=== PATIENT | female | born 1950 | race Caucasian/White ===

== ENCOUNTER → 2018-07-17 | Day surgery (SDC) | payer MEDICARE, BC ==
[~2018-07-17] MED LIST: IV RINGERS,LACTATED 1000ML 1,000 ML IV SCH; LABE200T4 PO; PANT20TA2 PO; PROPOFOL 20 ML IV ONE; SUCR1TAB PO; ZOLP10TA4 PO
[2018-07-17 16:30] VITALS: BP 226/106
--- NOTE | 2018-07-19 17:08 | PATHOLOGY ---
[facility] Accession Number: [id number] . 01 Material submitted: . PART A: DISTAL ESOPHAGUS BIOPSY PART B: GASTRIC BIOPSY . 01 Clinical history: . Weight loss, dysphagia . 02 Diagnosis: A. Esophageal biopsies, distal esophagus: - Poorly differentiated adenocarcinoma. See comment. . B. Gastric biopsies: - Segments of gastric showing focal reactive foveolar hyperplasia, congestion, edema, and mild chronic inflammation. . 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 02 Comment: Sections of the distal esophageal biopsy reveal a malignant epithelial neoplasm. The malignant cells are present in crowded small nests and focally form acinar structures, which in several of the biopsy segments undermine the overlying squamous esophageal mucosa. The malignant cells possess enlarged, rounded to ovoid nuclei containing prominent nucleoli. Mitotic figures are present. The findings are supportive of the diagnosis of a poorly differentiated adenocarcinoma. . Sections of the gastric biopsy reveal segments of gastric mucosa showing focal foveolar hyperplasia, congestion, edema, and mild chronic inflammation. There is a minute segment of necroinflammatory tissue. No viable neoplasm is identified. A properly controlled immunoperoxidase stain for Helicobacter is negative for Helicobacter organisms. . The results are reported to Dr. Leal on 07/19/18 at 1:00 PM. The case is also examined by Dr. Nicole Dumont, who concurs with the diagnosis. . Special stain performed: Immunoperoxidase stain for Helicobacter. . (JPM:darling; 07/19/2018) . 02 Electronically signed: . Devon Yancey MD, Pathologist NPI- [id number] . 01 Gross description: . A. Received in formalin labeled "Mariela Dawkins, distal esophagus," are multiple segments of duong soft tissue measuring 1.1 x 0.4 x 0.1 cm in aggregate dimensions. The specimen is filtered and entirely submitted in cassette A1. . B. Received in formalin labeled "Mariza, Mariela, gastric biopsy," are multiple segments of duong soft tissue measuring 1.7 x 0.3 x 0.1 cm in aggregate dimensions. The specimen is filtered and entirely submitted in cassette B1. (TSD; 07/18/2018) TOB/TOB . 02 Pathologist provided ICD-10: C15.9, K29.50 . 02 CPT . 860441, 472337, Y20503 Specimen Comment: A courtesy copy of this report has been sent to Specimen Comment: [phone], . Specimen Comment: Report sent to / DR RAJPUT Specimen Comment: A duplicate report has been generated due to demographic updates. Performed at: 01 [facility] [address] [facility] [address], [place] [id number] MD Ac Bhardwaj MD Phone: [phone] Performed at: 02 [facility] [address] [place], [place] [id number] MD Devon Yancey MD Phone: [phone]
== END | disposition home or self-care (01) ==
LOC: SURG 14:34
PROVIDERS: ATTEND Internal Medicine Gastroenterology
DX: C15.5 Malignant neoplasm of lower third of esophagus (principal); K29.50 Unspecified chronic gastritis without bleeding; F41.9 Anxiety disorder, unspecified; J43.9 Emphysema, unspecified; M19.90 Unspecified osteoarthritis, unspecified site; K21.9 Gastro-esophageal reflux disease without esophagitis; I10 Essential (primary) hypertension; F17.200 Nicotine dependence, unspecified, uncomplicated; Z79.899 Other long term (current) drug therapy; Z90.49 Acquired absence of other specified parts of digestive tract; Z80.0 Family history of malignant neoplasm of digestive organs; Z88.5 Allergy status to narcotic agent
CPT/HCPCS: 43239; J2704; 88305; 88342

== ENCOUNTER → 2018-08-16 | Outpatient (CLI) | payer MEDICARE, BC ==
[2018-07-17 16:30] VITALS: BP 226/106
[~2018-08-16] MED LIST changes: -IV RINGERS,LACTATED 1000ML 1,000 ML IV SCH; -PROPOFOL 20 ML IV ONE
--- NOTE | 2018-08-16 12:36 | RAD ---
CLINICAL HISTORY: History of esophageal cancer. INDICATION: Initial evaluation. COMPARISON: [facility] TECHNIQUE: Location of scan: [facility] Radiopharmaceutical Dose: 13.96 mCi F-18 FDG intravenous Blood glucose at time of study: 108 FDG uptake time = 60 minutes. Images were obtained from the mid head to the mid thighs A low dose, noncontrast CT study was performed for the purpose of attenuation correction and anatomic localization. FINDINGS: Head and Neck: Physiologic activity is seen within the head and neck Chest: An 8 mm x 5 mm right paraesophageal lymph node (image 327) has an SUV max of 9.3. Prominent right axillary lymph nodes, which measure up to 7 mm in short axis are seen within SUV max of 2.4. Emphysematous changes are seen. Bilateral 3-4 mm lung nodules are seen, too small to characterize by PET/CT. Heart is enlarged. No pericardial effusion. Coronary artery calcifications are seen. Abdomen and Pelvis: An inferior right hepatic lobe hypodense lesion measures 3.5 x 2.1 cm with an SUV max of 36.8. A 1 cm left hepatic lobe hypodense lesion (image 203) has an SUV max of 11. A gastrohepatic ligament lymph node mass measures approximately 6.4 x 4.3 cm with an SUV max of 40.7. Although there is mild increased activity within the small and large bowel which is likely physiologic, there is a region of colon with an SUV max of 10.4 in the ascending colon and the cecum to the hepatic flexure. No definite associated inflammatory changes/fat infiltration on the CT portion to suggest colitis. Moderate right hydronephrosis to the level of the ureteropelvic junction with distal decompressed appearance of the ureter. This is suspicious for obstruction at the right ureteropelvic junction, age indeterminate. Otherwise physiologic renal collecting system activity. Skeletal: Physiologic activity is seen within the skeletal structures. No definite suspicious focus of increased metabolic activity. Reference SUV Values: Mediastinal SUV Max: 2.1 Liver SUV Max: 3.8 IMPRESSION: 1. Gastrohepatic ligament lymph node mass is seen with increased metabolic activity suspicious for metastatic disease/primary malignant involvement/extension. 2. Small paraesophageal lymph node in the superior mediastinum, measuring approximately 5 mm short axis, also with increased metabolic activity. This is suspicious for metastatic involvement. 3. 2 hypodense lesions within the liver with increased metabolic activity suspicious for metastatic disease. 4. Increased metabolic activity within the ascending colon to the hepatic flexure greater than background activity within the small and large bowel. Malignancy is not excluded and can be further assessed by colonoscopy if not already performed. Although this may also represent infectious/inflammatory process, given the lack of associated inflammatory change/wall thickening, is felt to be less likely. 5. Moderate right hydronephrosis to the level of the ureteropelvic junction with distal decompressed appearance of the ureter. This is suspicious for obstruction at the right ureteropelvic junction, age indeterminate. Radiation Dosimetry: The radiopharmaceutical used for this exam delivers approximately 0.7 mSv/mCi (70 mRem/mCi) Source: ICRP Publication 106
== END | disposition home or self-care (01) ==
LOC: PETSC 08:12
PROVIDERS: ATTEND Internal Medicine Hematology & Oncology
DX: C15.9 Malignant neoplasm of esophagus, unspecified (principal); R59.9 Enlarged lymph nodes, unspecified; N13.30 Unspecified hydronephrosis; J43.9 Emphysema, unspecified; I25.10 Atherosclerotic heart disease of native coronary artery without angina pectoris
CPT/HCPCS: 78815; A9552

== ENCOUNTER 2018-08-31 07:04 | Outpatient (CLI) | payer MEDICARE, BC ==
[~2018-08-31] VITALS: Ht 165.1 cm; Wt 83.9 kg
[2018-08-31] MEDS ORDERED: fentaNYL PF VIAL 100 MCG/2 ML VIAL ONE (07:40)
[2018-08-31] MEDS ORDERED: MIDAZOLAM HCL/PF 2 MG/2 ML VIAL. ONE ×2 (07:40→08:23)
[2018-08-31] MEDS ORDERED: FLUMAZENIL 0.5 MG/5 ML VIAL. IV ONE (07:40)
[2018-08-31] MEDS ORDERED: NALOXONE 0.4 MG/ML VIAL. ONE (07:40)
[2018-08-31] MEDS ORDERED: LIDOCAINE WITH 8.4% SOD BICARB 3 ML DISP.SYRIN. ONE (07:41)
[2018-08-31 07:42] LABS: BASO # 0.1 x10^3/uL (0.0-0.2); BASO % 1 % (0-3); EOS # 0.2 x10^3/uL (0.0-0.7); EOS % 2 % (0-3); HEMATOCRIT 40.5 % (36.0-47.0); HEMOGLOBIN 13.6 g/dL (12.0-15.5); LYMPH # 2.8 x10^3/uL (1.0-4.8); LYMPH % 23 % (24-48); MEAN CORPUSCULAR HEMOGLOBIN 30 pg (25-35); MEAN CORPUSCULAR HGB CONC 34 g/dL (31-37); MEAN CORPUSCULAR VOLUME 89 fL (79-100); MONO # 0.5 x10^3/uL (0.0-1.1); MONO % 4 % (0-9); NEUT # 8.4 x10^3uL (1.8-7.7); NEUT % 70 % (31-73); PLATELET COUNT 405 x10^3/uL (140-400); RED BLOOD COUNT 4.54 x10^6/uL (3.50-5.40); RED CELL DISTRIBUTION WIDTH 14.7 % (11.5-14.5); WHITE BLOOD COUNT 12.1 x10^3/uL (4.0-11.0)
[2018-08-31 07:53] LABS: PROTHROMBIN TIME PATIENT 13.2 SEC (11.7-14.0)
[2018-08-31] MEDS ORDERED: LIDOCAINE 1%/EPI 1:100,000 20 ML VIAL. ONE (07:55)
[2018-08-31] MEDS ORDERED: TRAZ150T49 PO (07:56)
[2018-08-31] MEDS ORDERED: HYDR-2761 PO (07:56)
[2018-08-31] MEDS ORDERED: BUSP10TA PO (07:56)
[2018-08-31] MEDS ORDERED: PANT20TA2 PO (07:56)
[2018-08-31 08:11] VITALS: BP 189/109
[2018-08-31] MEDS ORDERED: MIDAZOLAM HCL/PF 2 MG/2 ML VIAL. IV ONE (08:45)
[2018-08-31] MEDS ORDERED: fentaNYL PF VIAL 100 MCG/2 ML VIAL IV ONE (08:45)
[2018-08-31] MEDS ORDERED: LIDOCAINE 1%/EPI 1:100,000 20 ML VIAL. IJ ONE (08:45)
[2018-08-31 08:49] VITALS: BP 151/81
[2018-08-31 09:00] VITALS: BP 154/92
[2018-08-31 09:16] VITALS: BP 158/94
[2018-08-31 09:30] VITALS: BP 183/94
--- NOTE | 2018-08-31 14:34 | RAD ---
Procedure: Ultrasound and fluoroscopically guided placement of right internal jugular power port.. 08/31/2018 2:30 PM Clinical Indication: ESOPHAGEAL CANCER Sedation: Conscious sedation was administered for 30 minutes. The patient was monitored by a qualified independent observer throughout the time of sedation. Please refer to the medical record for exact doses of medications utilized to achieve moderate sedation. Fluoroscopy time: 0.4 minutes Dose area product:1 Gycm2 Consent: The procedure was explained in its entirety to the patient or the patients designated automobile rental representative by a member of the treatment team, including a discussion of the risks, benefits and commonly accepted alternatives to the procedure, as well as the expected consequences of no therapy whatsoever. Discussion of the risks included, but was not limited to, those that are most frequent and those that are rare but possibly severe or life-threatening, as well as the possibility of unforeseen complications. Technique and Findings: All elements of maximal sterile barrier technique including the use of a cap, mask, sterile gown, sterile gloves, large sterile sheet, appropriate hand hygiene, and 2% chlorhexidine for cutaneous antisepsis (or acceptable alternative antiseptic per current guidelines) were followed for this procedure. Following informed consent, and a timeout procedure, the patient was prepped and draped in the usual sterile fashion. Ultrasound interrogation of the right neck revealed patency and compressibility of the right internal jugular vein. A 21-gauge micropuncture was then used to gain access to this vein under ultrasound guidance. A hard copy ultrasound image was recorded. The needle was exchanged over a wire for a sheath. A 1 inch incision was made several centimeters inferior to the venotomy site. A catheter was tunneled from this site dermatotomy site in the neck. Catheter was advanced through peel-away sheath such that its tip was in the proximal right atrium with the patient supine. The catheter was trimmed to length and connected to the port reservoir. The port was found to flush and aspirate normally. The wound was closed in layers using 4-0 Vicryl suture. Sterile dressings were applied. Impression: Successful ultrasound and fluoroscopically guided placement of a right internal jugular PowerPort
== END 2018-08-31 10:00 | disposition home or self-care (01) ==
LOC: INTRAD 07:04
PROVIDERS: ATTEND Internal Medicine Hematology & Oncology
DX: C15.5 Malignant neoplasm of lower third of esophagus (principal); Z79.01 Long term (current) use of anticoagulants; Z88.5 Allergy status to narcotic agent
CPT/HCPCS: 36415; 36561; 76937; 77001; 85025; 85610; 99152; 99153; C1788; C1892; J0690; J2250; J3010; J3490; C1751

== ENCOUNTER → 2018-09-11 | Outpatient (CLI) | payer MEDICARE, BC ==
[2018-08-31 09:30] VITALS: BP 183/94
[~2018-09-11] MED LIST changes: +BUSP10TA PO; +HYDR-2761 PO; +TRAZ150T49 PO
--- NOTE | 2018-09-11 16:52 | CARD ---
MR#: [id number] Date of Study: 09/11/2018 Ordering Physician: ERICA RAVI, Referring Physician: ERICA RAVI, Tech: Susanne Bee APPROVED REPORT EXAM: Two-dimensional and M-mode echocardiogram with Doppler and color Doppler. Other Information Quality : Average INDICATION LV Function: RISK FACTORS Hypertension Smoking 2D DIMENSIONS RVDd3.0 (2.9-3.5cm)Left Atrium(2D)3.7 (1.6-4.0cm) IVSd1.5 (0.7-1.1cm)Aortic Root(2D)2.9 (2.0-3.7cm) LVDd4.9 (3.9-5.9cm)PWd1.6 (0.7-1.1cm) LVDs3.1 (2.5-4.0cm)FS (%) 37.3 % SV76.5 ml Aortic Valve AoV Peak Abdi.157.3cm/sAoV VTI32.3cm AO Peak GR.9.9mmHgLVOT Peak Abdi.90.8cm/s LVOT VTI 22.98cmAO Mean GR.5mmHg Mitral Valve MV E Nqgffcyn33.4cm/sMV DECEL [id number] MV A Ejthxtwr61.0cm/sMV FWP78xc E/A Ratio0.9MVA (PHT)3.05cm2 TDI E/Lateral E'12.1E/Medial E'17.4 Pulmonary Valve PV Peak Unnnafyv88.6cm/sPV Peak Grad.3mmHg Tricuspid Valve TR P. Pyvdhiku723dq/sRAP VPBZTXWW0mkPf TR Peak Gr.51oyFdEIJY05saFe Pulmonary Vein S1 Knrlvovq15.9cm/sD2 Lddvgihs65.2cm/s PVa hqhyupia385ynsx LEFT VENTRICLE The left ventricle is normal size. There is mild concentric left ventricular hypertrophy. The left ve ntricular systolic function is normal and the ejection fraction is within normal range. LV ejection f raction is estimated at 60%. There is normal LV segmental wall motion. Transmitral Doppler flow patte rn is Grade I-abnormal relaxation pattern. RIGHT VENTRICLE The right ventricle is normal size. There is normal right ventricular wall thickness. The right ventr icular systolic function is normal. ATRIA The left atrium size is normal. The right atrium size is normal. The interatrial septum is intact wit h no evidence for an atrial septal defect or patent foramen ovale as noted on 2-D or Doppler imaging. AORTIC VALVE The aortic valve is normal in structure and function. Doppler and Color Flow revealed no significant aortic regurgitation. There is no significant aortic valvular stenosis. MITRAL VALVE The mitral valve is normal in structure and function. Doppler and Color-flow revealed trace mitral re gurgitation. TRICUSPID VALVE The tricuspid valve is not well visualized. Doppler and Color Flow revealed trace tricuspid regurgita tion. PULMONIC VALVE The pulmonic valve is not well visualized. Doppler and Color Flow revealed trace pulmonic valvular re gurgitation. GREAT VESSELS The aortic root is normal in size. Normal pulmonary venous flow (Doppler). The IVC is normal in size and collapses >50% with inspiration. PERICARDIAL EFFUSION There is no evidence of significant pericardial effusion. Critical Notification Critical Value: No <Conclusion> The left ventricle is normal size. The left ventricular systolic function is normal and the ejection fraction is within normal range. LV ejection fraction is estimated at 60%. There is mild concentric left ventricular hypertrophy. There is no significant aortic valvular stenosis. Doppler and Color Flow revealed no significant aortic regurgitation. Doppler and Color-flow revealed trace mitral regurgitation. Doppler and Color Flow revealed trace tricuspid regurgitation. Signed by : Adam Rock MD Electronically Approved : 09/11/2018 16:50:36
== END | disposition home or self-care (01) ==
LOC: ECHO 11:57
PROVIDERS: ATTEND Internal Medicine Hematology & Oncology
DX: C15.5 Malignant neoplasm of lower third of esophagus (principal); I11.9 Hypertensive heart disease without heart failure; F17.210 Nicotine dependence, cigarettes, uncomplicated
CPT/HCPCS: 93306

== ENCOUNTER → 2018-12-06 | Outpatient (CLI) | payer MEDICARE, BC ==
[~2018-12-06] MED LIST changes: +CARV25TA PO; +LOSA1TAB22 PO; +ONDA8TAB9 PO
--- NOTE | 2018-12-06 10:02 | RAD ---
FDG tumor localization scan, PET/CT, 12/06/2018: History: Restaging esophageal cancer Following IV injection of 10.8 mCi of 18 F-FDG, imaging was performed from the skull base to the proximal thighs. The noncontrast CT component was performed for attenuation correction and anatomic localization purposes rather than for primary diagnosis. The patient's blood glucose level at the time of injection was 93 MG/DL. Comparison is made to a study from 08/16/2018. Physiologic FDG uptake is seen in the neck. No hypermetabolic neck lesion is identified. No hypermetabolic mediastinal or hilar adenopathy is seen. The small right paraesophageal hypermetabolic lymph node seen in the upper chest on the previous study has regressed and is no longer enlarged or hypermetabolic. No abnormal pulmonary FDG uptake is seen. The CT component demonstrates old calcified granulomatous disease in the right chest and mediastinum. In the upper abdomen there is confluent hypermetabolic soft tissue densities involving the stomach at the level of the GE junction and extending into the gastrohepatic ligament and celiac axis regions. The overall process is difficult to measure due to its irregular shape. The 3-D images suggests that this mass has decreased slightly in size. Its maximum SUV is currently 33 compared to evaluate a 40 on the previous study. The hypermetabolic nodule seen superiorly in the left lobe of the liver on the previous study has decreased in size and the degree of FDG uptake. Its maximum SUV is currently 5.5 compared to a value of 11.0 on the previous study. The previously seen hypermetabolic mass in the inferior aspect of the right lobe of the liver is no longer clearly visible on either the FDG/PET or CT component. No new hepatic lesion is identified. Normal GI tract and urinary tract activity is present in the remainder of the abdomen and pelvis. No new hypermetabolic lesion is seen. Moderate chronic appearing hydronephrosis seen on the right on the previous study has improved with partial decompression of the right renal pelvis. There appears be a small amount of free fluid in the deep pelvis. A right Port-A-Cath has been inserted extending into the inferior aspect of the superior vena cava. IMPRESSION: 1. The hypermetabolic mass at the GE junction level with adjacent confluent adenopathy has regressed since 08/16/2018 as described above. 2. The hypermetabolic right paraesophageal adenopathy in the upper chest has resolved. 3. The two hepatic metastases have also regressed. 4. No new metastatic foci are identified.
== END | disposition home or self-care (01) ==
LOC: PETSC 07:17
PROVIDERS: ATTEND Internal Medicine Hematology & Oncology
DX: C15.5 Malignant neoplasm of lower third of esophagus (principal); C78.7 Secondary malignant neoplasm of liver and intrahepatic bile duct
CPT/HCPCS: 78815; A9552

== ENCOUNTER 2019-01-04 09:56 | Emergency (ER) | payer MEDICARE, BC ==
[~2019-01-04] VITALS: Ht 165.1 cm; Wt 70.3 kg
[~2019-01-04 09:56] MED LIST changes: -CARV25TA PO; -LOSA1TAB22 PO; -ONDA8TAB9 PO
[2019-01-04 10:38] VITALS: BP 168/101
[2019-01-04] MEDS ORDERED: ONDANSETRON ODT 4 MG TAB.RAPDIS. PO ONE (11:00)
--- NOTE | 2019-01-04 11:22 | PHYS DOC ---
Past Medical History Past Medical History: Cancer, Other Additional Past Medical Histor: esophageal CA stage IV with metastisis to liver ; R-foot drop Past Surgical History: Cholecystectomy, Other Additional Past Surgical Histo: right upper chest port Alcohol Use: None Drug Use: None Adult General Chief Complaint Chief Complaint: MECHANICAL FALL HPI HPI Patient is a 68 year old female who presents following a mechanical fall in her physician's office. She is currently being treated for stage 4 metastatic esophageal cancer. 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 She states that she was going to have her port removed and tripped over her R-foot while crossing the room. She fell forward, landing on both knees and catching her R-elbow on a chair to break her fall. She denies hitting her head and denies LOC. She reports feeling some lightheadedness this AM which is normal for her due to her sleeping medications. She denies any pain but does feel nauseous which she attributes to her chemo regimen. She denies CP, SOB, f/c/v, hematuria, hematochezia, hematemesis. She denies headache and change in vision. She recently had an echocardiogram done which was negative. Review of Systems Review of Systems Constitutional: Denies fever or chills [] Eyes: Denies change in visual acuity, redness, or eye pain [] HENT: Denies nasal congestion or sore throat [] Respiratory: Denies cough or shortness of breath [] Cardiovascular: No additional information not addressed in HPI [] GI: Reports nausea and slight abdominal pain which she attributes to her constipation. She denies vomiting, bloody stools or diarrhea [] : Denies dysuria or hematuria [] Musculoskeletal: Reports that her knees, shoulder and elbow have no pain. Denies back pain. Integument: Denies rash or skin lesions [] Neurologic: Denies headache, focal weakness or sensory changes [] Endocrine: Denies polyuria or polydipsia [] All other systems were reviewed and found to be within normal limits, except as documented in this note. Current Medications Current Medications Current Medications Medications (Trade) Dose Ordered Sig/David Start Time Stop Time Status Last Admin Dose Admin Ondansetron HCl (Zofran Odt) 4 mg 1X ONCE 01/04/19 11:00 01/04/19 11:04 DC 01/04/19 11:10 4 MG see medication list Allergies Allergies Allergies Coded Allergies Type Severity Reaction Last Updated Verified codeine Allergy Intermediate Palpitations 07/17/18 Yes prochlorperazine Allergy Unknown 01/04/19 Yes Physical Exam Physical Exam Constitutional: Well developed, well nourished, no acute distress, non-toxic appearance. [] HENT: Normocephalic, atraumatic, bilateral external ears normal, oropharynx moist, white tongue appreciated attributed to recent food and tums, no fracture or lacerations appreciated on head exam, nose normal. [] Eyes: PERRLA, EOMI, conjunctiva normal, no discharge. [] Neck: Normal range of motion, no tenderness, supple, no stridor. [] Cardiovascular:Heart rate regular rhythm, no murmur [] Lungs & Thorax: Bilateral breath sounds clear to auscultation [] Abdomen: Bowel sounds normal, soft, no tenderness, no masses, no pulsatile masses. [] Skin: Warm, dry, no erythema, no rash. [] Back: No tenderness, no CVA tenderness. [] Extremities: No tenderness, no cyanosis, no clubbing, ROM intact, no edema. Str 5/6 R-leg, 6/6L-leg[] Neurologic: Alert and oriented X 3, CN 2-11 intact, negative cerebellar signs, normal motor function, normal sensory function, no focal deficits noted. [] Psychologic: Affect normal, judgement normal, mood normal. [] Current Patient Data Vital Signs Vital Signs Date Time Temp Pulse Resp B/P (MAP) Pulse Ox O2 Delivery O2 Flow Rate FiO2 01/04/19 10:38 62 16 98 01/04/19 10:08 97.8 176/95 (122) Room Air 97.8 EKG EKG [] Radiology/Procedures Radiology/Procedures [] Course & Med Decision Making Course & Med Decision Making Pertinent Labs and Imaging studies reviewed. (See chart for details) Pt presents for mechanical fall. Clinical examination to head, extremities and mentation is benign and attributed to chronic R-foot drop. XRAY unnecessary given examination. Pt oropharynx demonstrates thick white covering of tongue suspicious for thrush. Advised patient to follow up with PCP for possible fungal infection she is adamant it is from recent tums so recommended see pmd if persists for the next few days [] Dragon Disclaimer Dragon Disclaimer This electronic medical record was generated, in whole or in part, using a voice recognition dictation system. Departure Departure Impression: Primary Impression: Fall Disposition: 01 HOME, SELF-CARE Condition: STABLE Patient Instructions: Fall Prevention and Home Safety, Yolm-hn-Vaeg RENE KEYES MD Jan 04, 2019 11:22
[2019-02-07] MEDS ORDERED: ONDA8TAB9 PO (15:30)
[2019-02-07] MEDS ORDERED: CARV25TA PO (15:30)
[2019-02-07] MEDS ORDERED: LOSA1TAB22 PO (15:30)
== END 2019-01-04 11:12 | disposition home or self-care (01) ==
LOC: ER 09:56
DX: R10.9 Unspecified abdominal pain (principal); M21.371 Foot drop, right foot; R42 Dizziness and giddiness; R11.0 Nausea; Z88.8 Allergy status to other drugs, medicaments and biological substances; Z88.5 Allergy status to narcotic agent; W18.39XA Other fall on same level, initial encounter; Y93.89 Activity, other specified; Y92.89 Other specified places as the place of occurrence of the external cause; Y99.8 Other external cause status
CPT/HCPCS: 99282; Q0162